=== PATIENT | female | born 1970 | race Caucasian/White ===

== ENCOUNTER 2020-04-27 17:42 | Emergency (ER) | payer OTHER ==
[~2020-04-27 17:42] MED LIST: MACROBID 100 M100 MG PO; PYRIDIUM100 MG PO; TESSALON PERLE100 MG PO; VENTOLIN HFA 66.7 GM INH; ZOFRAN ODT 4 MG4 MG PO; ZYRTEC10 M3 PO
== END 2020-04-27 18:07 | disposition left against medical advice (07) ==
LOC: ER1 17:42
DX: Z53.21 Procedure and treatment not carried out due to patient leaving prior to being seen by health care provider (principal)

== ENCOUNTER 2020-06-12 09:47 | Emergency (ER) | payer OTHER ==
[2020-06-12] MEDS ORDERED: IBU800 MG PO (11:23)
== END 2020-06-12 11:50 | disposition home or self-care (01) ==
LOC: ER1 09:47
DX: R51.9 Headache, unspecified (principal); Z88.0 Allergy status to penicillin
CPT/HCPCS: 99283

== ENCOUNTER → 2021-07-01 | Outpatient (CLI) | payer OTHER ==
[~2021-07-01] MED LIST changes: +HYDROCODON-ACE1 EAC2 PO; +IBU400 MG PO; +IBU800 MG PO
[2021-07-01 11:24] LABS: HEMOGLOBIN 12.5 gm/dl (12.3-15.3); RED BLOOD COUNT 4.22 M/UL (4.00-5.10)
[2021-07-01 11:55] LABS: BUN/CREATININE RATIO 12 (0-10)
== END ==
LOC: OPSV2 10:00
PROVIDERS: Orthopaedic Surgery
DX: Z01.812 Encounter for preprocedural laboratory examination (principal); S52.501A Unspecified fracture of the lower end of right radius, initial encounter for closed fracture
CPT/HCPCS: 80048; 85025

== ENCOUNTER → 2021-07-02 | Day surgery (SDC) | payer OTHER | END | disposition home or self-care (01) | LOC: OR 10:14 | DX: S52.501A Unspecified fracture of the lower end of right radius, initial encounter for closed fracture (principal); S52.611A Displaced fracture of right ulna styloid process, initial encounter for closed fracture; G89.18 Other acute postprocedural pain; Z88.1 Allergy status to other antibiotic agents; Z88.6 Allergy status to analgesic agent; Z79.899 Other long term (current) drug therapy; Z20.822 Contact with and (suspected) exposure to COVID-19; W01.0XXA Fall on same level from slipping, tripping and stumbling without subsequent striking against object, initial encounter | CPT/HCPCS: 73110; 76000; C1713; J1100; J1885; J2001; J2250; J2405; J2704; J2795; J3010 ==